=== PATIENT | male | born 1985 | race Caucasian/White ===

== ENCOUNTER 2021-04-15 23:00 | Emergency (ER) | payer OTHER ==
[~2021-04-15] VITALS: Ht 180.3 cm; Wt 84.4 kg
[2021-04-15 23:16] VITALS: BP_SYST 156
[2021-04-15] MEDS ORDERED: MORPHINE SULFATE 10 MG/ML VIAL IVP ONE (23:30)
[2021-04-15] MEDS ORDERED: NACL 0.9% 1,000 ML IV ONE (23:30)
[2021-04-15] MEDS ORDERED: PROCHLORPERAZINE EDISYLATE 10 MG/2 ML VIAL IVP ONE (23:30)
[2021-04-15 23:55] LABS: BASOPHILS % (AUTO) 0.6 % (0.0-2.0); EOSINOPHILS # (AUTO) 0.2 K/uL (0.0-0.4); EOSINOPHILS % (AUTO) 3.2 % (0.0-4.0); HEMATOCRIT 42.3 % (36-54); HEMOGLOBIN 14.4 g/dL (14.0-18.0); LYMPHOCYTES # (AUTO) 2.5 K/uL (1.0-5.5); MEAN CORPUSCULAR HEMOGLOBIN 31 pg (27-31); MEAN CORPUSCULAR HGB CONC 34 % (32-36); MEAN CORPUSCULAR VOLUME 90 fL (79.0-98.0); MONOCYTES # (AUTO) 0.5 K/uL (0.0-1.0); MONOCYTES % (AUTO) 7.6 % (1.7-9.3); NEUTROPHILS # (AUTO) 3.2 K/uL (1.8-7.7); NEUTROPHILS % (AUTO) 49.6 % (40.0-70.0); PLATELET COUNT (AUTO) 154 K/uL (130-430); RED BLOOD CELL COUNT(AUTO) 4.69 MIL/uL (4.2-6.2); RED CELL DISTRIBUTION WIDTH 12.7 % (9.0-15.0); WHITE BLOOD COUNT (AUTO) 6.4 K/uL (4.8-10.8)
[2021-04-16] MEDS ORDERED: DIATR MEGLU/DIATRIZ SOD 30 ML SOLUTION PO ONE (00:16)
[2021-04-16 00:54] LABS: CALCIUM 8.6 mg/dL (8.4-11.0); CREATININE 1.22 mg/dL (0.55-1.30); POTASSIUM 3.8 mmol/L (3.5-5.1)
[2021-04-16 02:14] LABS: TOTAL BILIRUBIN 0.3 mg/dL (0.0-1.0)
[2021-04-16 02:18] LABS: ALBUMIN 3.4 g/dL (3.4-4.8)
[2021-04-16] MEDS ORDERED: HYOS-26 PO (03:44)
[2021-04-16] MEDS ORDERED: ONDA-8 TL (03:44)
[2021-04-16 03:57] VITALS: BP_SYST 123
[2021-04-16] MEDS ORDERED: MILK OF MAGNESIA 30 ML UDC PO ONE (04:00)
== END 2021-04-16 03:58 | disposition home or self-care (01) ==
LOC: SED 23:00
DX: R10.33 Periumbilical pain (principal); Z90.5 Acquired absence of kidney; Z79.899 Other long term (current) drug therapy
CPT/HCPCS: 36415; 74177; 76376; 80053; 83690; 85025; 96361; 96374; 96375; 99285; J0780; J2270; J7030; Q9964; Q9967